=== PATIENT | female | born 1960 | race African-American/Black ===

== ENCOUNTER 2019-07-13 17:21 | Emergency (ER) | payer SELFPAY, OTHER ==
[2019-07-14 14:06] LABS: SARS-CoV-2 MS2 Positive; SARS-CoV-2 N Gene Positive; SARS-CoV-2 S Gene Positive; SARS-CoV-2 orf1ab Positive
== END 2019-07-13 18:00 | disposition home or self-care (01) ==
LOC: ERS 17:21
DX: U07.1 COVID-19 (principal); M19.90 Unspecified osteoarthritis, unspecified site; Z79.899 Other long term (current) drug therapy
CPT/HCPCS: 87635; 99283; U0003